=== PATIENT | male | born 1980 | race Caucasian/White ===

== ENCOUNTER 2018-07-12 10:40 | Emergency (ER) | payer SELFPAY ==
[2018-07-12] MEDS ORDERED: LIDOCAINE 1%/EPINEPHRINE INJ 20 ML VIAL INJ ONE (11:16)
[2018-07-12] MEDS ORDERED: CEPHALEXIN 500 MG CAPSULE PO ONE (11:19)
[2018-07-12] MEDS ORDERED: SULFAMETHOXAZOLE/TRIMETHOPRIM 800-160 MG TABLET PO ONE (11:19)
--- NOTE | 2018-07-12 11:19 | ER Document Report ---
ED Skin Rash/Insect Bite/Abscs - General Chief Complaint: Abscess Stated Complaint: POSSIBLE ABSCESS Time Seen by Provider: 07/12/18 11:12 Mode of Arrival: Ambulatory Information source: Patient Notes: 37-year-old male who presents with 3 days of a slow developing right sided lesion to the anterior trapezius region of the right arm. No fevers or vomiting. No history of abscesses. No trauma. No history of diabetes. He states it is painful to touch. TRAVEL OUTSIDE OF THE [place] IN LAST 30 DAYS: No - HPI Patient complains to provider of: Skin rash/lesion Onset: Other - See above Onset/Duration: Gradual Quality of pain: Achy Severity: Mild Pain Level: Denies Skin Character: Abscess Quality of rash: Painful Identify cause: No Similar symptoms previously: No - Related Data Allergies/Adverse Reactions: No Known Allergies Allergy (Unverified 07/12/18 11:58) Past Medical History - Social History Smoking Status: Unknown if Ever Smoked Family History: Reviewed & Not Pertinent Patient has suicidal ideation: No Patient has homicidal ideation: No Renal/ Medical History: Denies: Hx Peritoneal Dialysis Physical Exam - Vital signs Vitals: Temp Pulse Resp BP Pulse Ox 98.1 F 96 20 150/97 H 99 07/12/18 10:49 07/12/18 10:49 07/12/18 10:49 07/12/18 10:49 07/12/18 10:49 Notes: Reviewed vital signs and nursing note as charted by RN. CONSTITUTIONAL: Alert and oriented and responds appropriately to questions. Well-appearing; well-nourished HEAD: Normocephalic; atraumatic ENT: Normal nose; no rhinorrhea; moist mucous membranes; pharynx without lesions noted NECK: Patient has a tender fluctuant and erythematous area to the right anterior trapezius region consistent with an abscess SKIN: No acute lesions noted NEURO: CN 2-12 intact Course - Re-evaluation Re-evalutation: 07/12/18 11:18 Given the history and physical examination I will perform a bedside incision and drainage with packing and start the patient on 2 antibiotics. I will perform an Accu-Chek to make sure that the patient does not have diabetes. - Vital Signs Vital signs: Temp Pulse Resp BP Pulse Ox 98.1 F 96 20 150/97 H 99 07/12/18 10:49 07/12/18 10:49 07/12/18 10:49 07/12/18 10:49 07/12/18 10:49 Procedures - Incision and Drainage Right Neck Type: Simple Anesthetic type: 1% Lidocaine w/epi Blade size: 11 I&D procedure: Chlorprep applied Incision Method: Incision made by scalpel Notes: 07/12/18 12:08 I probed, deloculated, and packed the wound with 1/4 inch iodoform gauze Discharge - Discharge Clinical Impression: Abscess Condition: Good Disposition: HOME, SELF-CARE Instructions: Abscess ([facility]), Post Incision and Drainage, Trimethoprim-Sulfa ([facility]) Additional Instructions: Come back immediately for any increased redness, swelling, fever, vomiting, or any other acute problems. Please return in 48 hours for reassessment either here in the emergency department with your primary care physician as we have discussed. Prescriptions: Cephalexin Monohydrate [Keflex 500 mg Capsule] 500 mg PO Q6H 5 Days capsule Sulfamethoxazole/Trimethoprim [Bactrim Ds Tablet] 2 each PO BID #40 tablet
[2018-07-12 12:50] VITALS: BP 154/105
== END 2018-07-12 12:50 | disposition home or self-care (01) ==
LOC: ER 10:40
PROC: 0H94XZZ Drainage of Neck Skin, External Approach (ICD-10-PCS; principal; 2018-07-12)
DX: L02.11 Cutaneous abscess of neck (principal); R21 Rash and other nonspecific skin eruption
CPT/HCPCS: 99283; 82962; 10060; A6266; J3490

== ENCOUNTER 2018-07-13 14:21 | Emergency (ER) | payer SELFPAY ==
[2018-07-13 14:28] VITALS: BP 153/95
--- NOTE | 2018-07-13 15:26 | ER Document Report ---
HPI - HPI Time Seen by Provider: 07/13/18 15:15 Pain Level: 1 Notes: Patient is an otherwise healthy 37-year-old male who presents to the emergency department for packing removal. Patient reports he had an incision and drainage done here but approximately 48 hours ago for an abscess to the right side of his neck. Patient has not change the dressing since he left. Denies any fevers. Past Medical History - General Information source: Patient - Social History Smoking Status: Current Every Day Smoker Chew tobacco use (# tins/day): No Frequency of alcohol use: Social Drug Abuse: None Family History: Reviewed & Not Pertinent Patient has suicidal ideation: No Patient has homicidal ideation: No - Medical History Medical History: Negative Renal/ Medical History: Denies: Hx Peritoneal Dialysis Surgical Hx: Negative - Immunizations Immunizations up to date: Yes Vertical Provider Document - CONSTITUTIONAL Notes: PHYSICAL EXAMINATION: GENERAL: Well-appearing, well-nourished and in no acute distress. HEAD: Atraumatic, normocephalic. EYES: Pupils equal round extraocular movements intact, conjunctiva are normal. ENT: Nares patent NECK: Normal range of motion LUNGS: No respiratory distress Musculoskeletal: Normal range of motion NEUROLOGICAL: Normal speech, normal gait. PSYCH: Normal mood, normal affect. SKIN: Warm, Dry, normal turgor, no rashes or lesions noted. Area of induration without fluctuance noted to right side of patient's neck no surrounding erythema. - INFECTION CONTROL TRAVEL OUTSIDE OF THE [place] IN LAST 30 DAYS: No Course - Re-evaluation Re-evalutation: Packing was removed, minimal amount of drainage was noted on dressing. Will not repack the wound. New dressing applied. Patient and given instructions on dressing changes. They both verbalized understanding. Patient encouraged to continue taking p.o. antibiotics as previously prescribed. - Vital Signs Vital signs: Temp Pulse Resp BP Pulse Ox 98.4 F 100 18 153/95 H 97 07/13/18 14:24 07/13/18 14:24 07/13/18 14:24 07/13/18 14:24 07/13/18 14:24 Discharge - Discharge Clinical Impression: Abscess re-check Condition: Stable Disposition: HOME, SELF-CARE Additional Instructions: The packing was removed from your abscess today. The abscess appears to be healing well. Please continue to take the antibiotics as prescribed. Change the dressing at least twice a day or anytime he gets soiled. When you can please apply warm compresses to the area as this will help drain out any leftover pus. Return to the emergency department if you experience a fever or any worsening symptoms such as increased redness or tenderness to the area.
[2018-07-13] MEDS ORDERED: PREDNISONE 20 MG TABLET PO ONE (15:43)
[2018-07-13] MEDS ORDERED: IPRATROPIUM/ALBUTEROL 0.5-2.5 MG/3 ML AMPUL NEB ONE (15:43)
== END 2018-07-13 15:32 | disposition home or self-care (01) ==
LOC: ER 14:21
DX: L02.11 Cutaneous abscess of neck (principal)
CPT/HCPCS: 99282

== ENCOUNTER 2018-09-08 20:19 | Emergency (ER) | payer SELFPAY | END 2018-09-08 21:00 | disposition left against medical advice (07) | LOC: ER 20:19 | DX: Z53.21 Procedure and treatment not carried out due to patient leaving prior to being seen by health care provider (principal) ==